=== PATIENT | male | born 1975 | race American Indian/Alaskan Native ===

== ENCOUNTER 2021-08-26 14:14 | Inpatient (IN) | payer SELFPAY ==
[2021-08-26] MEDS ORDERED: ONDANSETRON 4 MG/2 ML INJ IV ONE (14:25)
[2021-08-26] MEDS ORDERED: ONDANSETRON 4 MG/2 ML INJ ONE (14:29)
--- NOTE | 2021-08-26 14:29 | Emergency Department Report ---
HPI - General Time Seen by Provider: 08/26/21 14:18 - HPI HPI: Charge nurse triage The patient is a 46-year-old male present with chief complaint of right-sided weakness. Patient states at 21: 00 last night he noticed weakness in his right arm and right leg. EMS was called this morning states the patient is unable to stand secondary to the right leg weakness. When the patient was first encountered he was alert and oriented however during transport some of his answers to questions were inappropriate per EMS. Upon arrival to the ED EMS states the patient became more appropriate. ED Past Medical Hx - Past Medical History Hx Hypertension: Yes (No meds) - Surgical History Past Surgical History?: No - Family History Family history: no significant - Social History Smoking Status: Never Smoker ED Review of Systems ROS: Stated complaint: CODE STROKE Other details as noted in HPI Constitutional: no symptoms reported Eyes: denies: eye pain ENT: denies: throat pain Respiratory: no symptoms reported Cardiovascular: denies: chest pain Endocrine: no symptoms reported Gastrointestinal: denies: abdominal pain Musculoskeletal: denies: back pain Neurological: weakness Physical Exam - Physical Exam Physical Exam: GENERAL: The patient is well-developed well-nourished male lying on stretcher not appearing to be in acute distress. [] HEENT: Normocephalic. Atraumatic. Extraocular motions are intact. Patient has moist mucous membranes. NECK: Supple. Trachea midline CHEST/LUNGS: Clear to auscultation. There is no respiratory distress noted. HEART/CARDIOVASCULAR: Regular. There is no tachycardia. There is no gallop rub or murmur. ABDOMEN: Abdomen is soft, nontender. Patient has normal bowel sounds. There is no abdominal distention. SKIN: There is no rash. There is no edema. There is no diaphoresis. NEURO: The patient is awake, alert, and oriented. The patient is cooperative. Cranial nerves II through XII grossly intact. Patient is able to hold left upper extremity at 45 degree angle for 10-second count without drift. Patient is able to hold right upper extremity at 45 degree angle for 10-second count with minimal drift. The patient has normal speech. Patient able to hold left lower extremity at 30 degree angle for 5-second count without drift. Patient is able to hold right lower extremity at 30 degree angle for 5-second count however there is frequent drift and correction. GCS 15 MUSCULOSKELETAL: There is no evidence of acute injury. ED Medical Decision Making - Lab Data Result diagrams: 08/26/21 14:56 08/26/21 14:56 Laboratory Tests 08/26/21 08/26/21 08/26/21 14:56 14:56 14:56 WBC 6.0 RBC 4.69 Hgb 15.5 H Hct 46.0 H MCV 98 H MCH 33 H MCHC 34 RDW 15.0 Plt Count 174 Lymph % (Auto) 25.8 [place] % (Auto) 9.6 H Eos % (Auto) 0.1 Baso % (Auto) 0.3 Lymph # (Auto) 1.6 [place] # (Auto) 0.6 Eos # (Auto) 0.0 Baso # (Auto) 0.0 Seg Neutrophils % 64.2 Seg Neutrophils # 3.9 PT 13.2 INR 0.91 APTT 30.1 Thrombin Time 17.8 Sodium 138 Potassium 4.2 Chloride 104.3 Carbon Dioxide 20 L Anion Gap 18 BUN 12 Creatinine 1.0 Estimated GFR > 60 BUN/Creatinine Ratio 12 Glucose 114 H Calcium 9.2 - EKG Data -: EKG Interpreted by Ks EKG shows normal: sinus rhythm Rate: normal - EKG Data When compared to previous EKG there are: previous EKG unavailable Interpretation: nonspecific ST-T wave devendra (T wave inversions in leads I, 2, aVL, aVF, V4, V5, V6) - Radiology Data Radiology results: report reviewed (CT head, CTA neck, CTA brain), image reviewed (CT head, CTA neck, CT brain) [facility] [address] [place] [address] Cat Scan Report Signed Patient: KENDRA REGAN MR#: [id number] : 1975 Acct:[id number] Age/Sex: 46 / M ADM Date: 08/26/21 Loc: ED Attending Dr: Ordering Physician: ANTOINETTE MYERS MD Date of Service: 08/26/21 Procedure(s): CT head/brain wo con Accession Number(s): [id number] cc: ANTOINETTE MYERS MD CT HEAD WITHOUT CONTRAST INDICATION / CLINICAL INFORMATION: CODE STROKE CALL ER MAIN AT 8199 Right-sided weakness. TECHNIQUE: All CT scans at this location are performed using CT dose reduction for ALARA by means of automated exposure control. COMPARISON: None available. LIMITATIONS: Patient motion artifact degrades image quality and is a limiting factor on this examination. FINDINGS: HEMORRHAGE: No evidence of intracranial hemorrhage or extra-axial fluid collection. EXTRA-AXIAL SPACES: Cortical sulci, sylvian fissures and basilar cisterns have an unremarkable appearance. VENTRICULAR SYSTEM: The third and lateral ventricles are of normal size and configuration. CEREBRAL PARENCHYMA: No areas of abnormal brain parenchymal attenuation are identified. There is no indication of recent infarction. MIDLINE SHIFT OR HERNIATION: There is no mass effect. CEREBELLUM / BRAINSTEM: Brainstem and cerebellum have an unremarkable appearance. MIDLINE STRUCTURES:No abnormalities of the pituitary gland or pineal region are identified. INTRACRANIAL VESSELS:No abnormalities are identified on this noncontrast head CT. ORBITS: visualized portions of the orbits have an unremarkable appearance. SOFT TISSUES of HEAD: No significant abnormality. CALVARIUM: Evaluation of bone windows reveals no abnormalities. PARANASAL SINUSES / MASTOID AIR CELLS: Visualized portions of the paranasal sinuses are free from inflammatory mucosal disease. Mastoid air cells are normally pneumatized. ADDITIONAL FINDINGS: None. IMPRESSION: 1. No acute intracranial abnormality. CTA head and neck are pending. CODE STROKE: Time of Communication (TOOL LIAISON/CDT): 1350 central standard time Licensed Practitioner Receiving Report: Dr. Barajas, emergency department [facility]. Signer Name: Faisal Champion MD Signed: 08/26/2021 2:52 PM Workstation Name: [id number] Transcribed By: Dictated By: Faisal Champion MD Electronically Authenticated By: Faisal Champion MD Signed Date/Time: 08/26/21 145 DD/ TD/TT: [facility] [address] [place] [address] Cat Scan Report Signed Patient: KENDRA REGAN MR#: [id number] : 1975 Acct:[id number] Age/Sex: 46 / M ADM Date: 08/26/21 Loc: ED Attending Dr: Ordering Physician: ANTOINETTE MYERS MD Date of Service: 08/26/21 Procedure(s): CT angio head Accession Number(s): [id number] cc: ANTOINETTE MYERS MD CTA HEAD WITH CONTRAST 08/26/2021 HISTORY: Right-sided weakness OMNI 350 100 ML. COMPARISON: None. TECHNIQUE: All CT scans at this location are performed using CT dose reduction for ALARA by means of automated exposure control.. 3-D/MIP reformats postprocessed. Percentage stenosis is determined by direct quantitative measurements of diseased internal carotid artery diameter compared with normal distal internal carotid artery reference segments or by criteria similar to NASCET where applicable. CONTRAST: 100 ml of Omnipaque 350 FINDINGS: CTA HEAD: Intracranial vertebral arteries: No significant abnormality. Basilar artery: No significant abnormality. Posterior cerebral arteries: No significant abnormality. Intracranial internal carotid arteries: No significant abnormality. Anterior cerebral arteries: No significant abnormality. Middle cerebral arteries: No significant abnormality. Dural venous sinuses:Not optimally opacified. No significant abnormality. Additional findings: None. IMPRESSION: 1. No significant abnormality. Signer Name: Raul Erazo MD Signed: 08/26/2021 3:05 PM Workstation Name: [id number] Transcribed By: AO Dictated By: Raul Erazo MD Electronically Authenticated By: Raul Erazo MD Signed Date/Time: 08/26/21 1505 DD/ 1503 TD/TT: [facility] [address] [place] [address] Cat Scan Report Signed Patient: KENDRA REGAN MR#: [id number] : 1975 Acct:[id number] Age/Sex: 46 / M ADM Date: 08/26/21 Loc: ED Attending Dr: Ordering Physician: ANTOINETTE MYERS MD Date of Service: 08/26/21 Procedure(s): CT angio neck Accession Number(s): [id number] cc: ANTOINETTE MYERS MD CTA NECK WITH CONTRAST 08/26/2021 INDICATION / CLINICAL INFORMATION: Right-sided weakness OMNI 350 100 ML. COMPARISON: None. TECHNIQUE: Routine CTA of the neck is performed. 3-D/MIP reformats were postprocessed. Percentage stenosis is determined by direct quantitative measurements of diseased internal carotid artery diameter compared with normal distal internal carotid artery reference segments or by criteria similar to NASCET where applicable. All CT scans at this location are performed using CT dose reduction for ALARA by means of automated exposure control. CONTRAST: 100 ml of a 350 FINDINGS: Carotid bifurcations: There is no evidence of carotid bifurcation stenosis Carotid arteries: No significant abnormality. Cervical vertebral arteries: The relatively hypoplastic left vertebral artery has a direct origin from the aortic arch, a normal variant. Aortic arch: No significant abnormality. None. IMPRESSION: No significant abnormality. Signer Name: Raul Erazo MD Signed: 08/26/2021 3:03 PM Workstation Name: [id number] Transcribed By: AO Dictated By: Raul Erazo MD Electro nically Authenticated By: Raul Erazo MD Signed Date/Time: 08/26/21 1503 DD/ 1500 TD/TT: - Differential Diagnosis CVA Critical care attestation.: If time is entered above; I have spent that time in minutes in the direct care of this critically ill patient, excluding procedure time. ED Disposition Clinical Impression: CVA (cerebral vascular accident) Disposition: ADMITTED INPATIENT Is pt being admited?: Yes Does the pt Need Aspirin: Yes Condition: Fair Time of Disposition: 17:00 (Hospitalist notified (Dr. Camarena))
--- NOTE | 2021-08-26 14:57 | Cat Scan Report ---
CT HEAD WITHOUT CONTRAST INDICATION / CLINICAL INFORMATION: CODE STROKE CALL ER MAIN AT 8199 Right-sided weakness. TECHNIQUE: All CT scans at this location are performed using CT dose reduction for ALARA by means of automated e xposure control. COMPARISON: None available. LIMITATIONS: Patient motion artifact degrades image quality and is a limiting factor on this examinat ion. FINDINGS: HEMORRHAGE: No evidence of intracranial hemorrhage or extra-axial fluid collection. EXTRA-AXIAL SPACES: Cortical sulci, sylvian fissures and basilar cisterns have an unremarkable appear ance. VENTRICULAR SYSTEM: The third and lateral ventricles are of normal size and configuration. CEREBRAL PARENCHYMA: No areas of abnormal brain parenchymal attenuation are identified. There is no i ndication of recent infarction. MIDLINE SHIFT OR HERNIATION: There is no mass effect. CEREBELLUM / BRAINSTEM: Brainstem and cerebellum have an unremarkable appearance. MIDLINE STRUCTURES:No abnormalities of the pituitary gland or pineal region are identified. INTRACRANIAL VESSELS:No abnormalities are identified on this noncontrast head CT. ORBITS: visualized portions of the orbits have an unremarkable appearance. SOFT TISSUES of HEAD: No significant abnormality. CALVARIUM: Evaluation of bone windows reveals no abnormalities. PARANASAL SINUSES / MASTOID AIR CELLS: Visualized portions of the paranasal sinuses are free from inf lammatory mucosal disease. Mastoid air cells are normally pneumatized. ADDITIONAL FINDINGS: None. IMPRESSION: 1. No acute intracranial abnormality. CTA head and neck are pending. CODE STROKE: Time of Communication (LITERACY COORDINATOR/CDT): 1350 central standard time Licensed Practitioner Receiving Report: Dr. Barajas, emergency department [facility]. Signer Name: Faisal Champion MD Signed: 08/26/2021 2:52 PM Workstation Name: [id number]
--- NOTE | 2021-08-26 15:07 | Cat Scan Report ---
CTA NECK WITH CONTRAST 08/26/2021 INDICATION / CLINICAL INFORMATION: Right-sided weakness OMNI 350 100 ML. COMPARISON: None. TECHNIQUE: Routine CTA of the neck is performed. 3-D/MIP reformats were postprocessed. Percentage st enosis is determined by direct quantitative measurements of diseased internal carotid artery diameter compared with normal distal internal carotid artery reference segments or by criteria similar to DAMARIS CET where applicable. All CT scans at this location are performed using CT dose reduction for ALARA b y means of automated exposure control. CONTRAST: 100 ml of a 350 FINDINGS: Carotid bifurcations: There is no evidence of carotid bifurcation stenosis Carotid arteries: No significant abnormality. Cervical vertebral arteries: The relatively hypoplastic left vertebral artery has a direct origin fro m the aortic arch, a normal variant. Aortic arch: No significant abnormality. None. IMPRESSION: No significant abnormality. Signer Name: Raul Erazo MD Signed: 08/26/2021 3:03 PM Workstation Name: [id number]
--- NOTE | 2021-08-26 15:09 | Cat Scan Report ---
CTA HEAD WITH CONTRAST 08/26/2021 HISTORY: Right-sided weakness OMNI 350 100 ML. COMPARISON: None. TECHNIQUE: All CT scans at this location are performed using CT dose reduction for ALARA by means of automated exposure control.. 3-D/MIP reformats postprocessed. Percentage stenosis is determined by d irect quantitative measurements of diseased internal carotid artery diameter compared with normal [place] internal carotid artery reference segments or by criteria similar to NASCET where applicable. CONTRAST: 100 ml of Omnipaque 350 FINDINGS: CTA HEAD: Intracranial vertebral arteries: No significant abnormality. Basilar artery: No significant abnormality. Posterior cerebral arteries: No significant abnormality. Intracranial internal carotid arteries: No significant abnormality. Anterior cerebral arteries: No significant abnormality. Middle cerebral arteries: No significant abnormality. Dural venous sinuses:Not optimally opacified. No significant abnormality. Additional findings: None. IMPRESSION: 1. No significant abnormality. Signer Name: Raul Erazo MD Signed: 08/26/2021 3:05 PM Workstation Name: [id number]
[2021-08-26 15:13] LABS: Basophils % (Auto) 0.3 % (0.0-1.8); Eosinophils % (Auto) 0.1 % (0.0-4.3); Hemoglobin 15.5 gm/dl (11.8-15.2); Lymphocytes # (Auto) 1.6 K/mm3 (1.2-5.4); Lymphocytes % (Auto) 25.8 % (13.4-35.0); Mean Corpuscular HGB Conc 34 % (32-34); Mean Corpuscular Volume 98 fl (84-94); Monocytes # (Auto) 0.6 K/mm3 (0.0-0.8); Monocytes % (Auto) 9.6 % (0.0-7.3); Platelet Count 174 K/mm3 (140-440); Red Blood Count 4.69 M/mm3 (3.65-5.03)
[2021-08-26 15:25] LABS: INR 0.91 (0.87-1.13); Partial Thromboplastin Time 30.1 Sec. (24.2-36.6); Thrombin Time 17.8 Sec. (15.1-19.6)
--- NOTE | 2021-08-26 15:28 | Emergency Department Report ---
Blank Doc - Documentation Documentation: [facility] Consult Note # Demographics Consult Type: Acute Stroke Level 1 (0-4.5 hrs) Patient Location: Emergency Room First Name: Rick Last Name: Adalberto Date of : 1975 Age: 46 Gender: Male Facility: [facility] Time of Initial Page (): 08/26/2021, 14:18 Time of Return Call ( Time): 08/26/2021, 14:18 # HPI History: 46 year old male presented to ED due to not feeling well starting last night. Patient confused on presentation but as per EMS he is improving. Nurse at bedside provided story that patient had headache last night and had right sided weakness. HE woke up with similar presenatation this morning and wasnt himself. EMS was called who found him to be confused, not answering questions. He seems to be improving now. Patient provided limited hx but states he does not take any medications as he does not have any insurance. Last Known Normal: I have collected independent history specific to time last normal or last known well. We have collaborated with the provider and at this time, we have the most current timeline with the information that is available. last night 9 pm Duration: improving days # Scores Time of exam and NIHSS (): 08/26/2021, 14:19 Level of Consciousness 1a: [0] = Alert; keenly responsive LOC Questions 1b: [1] = Answers one correctly LOC Commands 1c: [1] = Performs one correctly Best Gaze 2: [0] = Normal Visual 3: [0] = No visual loss Facial Palsy 4: [0] = Normal symmetrical movements Motor Arm Left 5a: [0] = No drift Motor Arm Right 5b: [1] = Drift Motor Leg Left 6a: [2] = Some effort against gravity Motor Leg Right 6b: [0] = No drift Limb Ataxia 7: [0] = Absent Sensory 8: [1] = [id number] sensory loss Best Language 9: [0] = No aphasia Dysarthria 10: [0] = Normal Extinction and Inattention 11: [0] = No abnormality NIHSS Total: 6 # PMH-FH-SH Past Medical History: hypertension Past Surgical History: denies Social History: lives with spouse Medications: denies # Data Time Head CT personally read by me ( Time): 08/26/2021, 14:[address]: no bleed per radiologist read CTA Head: no large vessel occlusion per radiologist read CTA Neck: patent vessels per radiologist read # Assessment Impression: 46 year old male with hx of HTN, not on any medications presents with right sided weakness and AMS starting last night. NIHSS: 6. CTH: without any abnormalities, CTA without LVO. Recommend MRI brain with and without contrast to start. Differential is broad: toxic/metabolic vs. hypertensive encephalopathy (though he has focality) vs. focal lesion in brain vs. infectious process # Plan Thrombolytic/Intervention: NOT IV Thrombolysis or IA Intervention candidate Thrombolytic Exclusion: > 4.5 hours Intraarterial Exclusion: no large vessel occlusion (LVO) Blood Pressure Management: nicardipine IV fluid bolus Target Blood Pressure: SBP < 180 SBP > 110 DBP < 105 Labs: Ammonia B12 CBC comprehensive metabolic panel ESR hemoglobin A1c liver function tests lipid panel troponin TSH urine drug screen ua Imaging: (urgency: routine): MRI Brain with AND without contrast Diagnostic Test: echo with bubble study Therapy/Evaluation: PT/OT evaluation speech/swallow consultation Medication: aspirin 81 mg daily start statin with goal of LDL < 70 DVT Prophylaxis: chemical DVT prophylaxis Other: If patient has any neurological deterioration please call me back immediately telemetry monitoring would not pursue stroke work-up if MRI is negative I have discussed my recommendations with the referring provider Disposition: admit
[2021-08-26 15:49] LABS: BUN/Creatinine Ratio 12; Blood Urea Nitrogen 12 mg/dL (9-20); Calcium 9.2 mg/dL (8.4-10.2); Hemolysis Index 14
[2021-08-26] MEDS ORDERED: ASPIRIN 325 MG TAB PO ONE (17:31)
[2021-08-26] MEDS ORDERED: hydrALAZINE 20 MG/1 ML INJ IV ONE (18:28)
[2021-08-26] MEDS: hydroCHLOROthiazide 25 MG TAB PO ONE (20:00)
[2021-08-26] MEDS: amLODIPine 5 MG TAB PO ONE (20:00)
[2021-08-26 23:06] LABS: Amphetamine Screen,Urine PRESUMPTIVE NEGATIVE; Benzodiazepines Screen,Urine PRESUMPTIVE NEGATIVE; Cannabinoid Screen,Urine PRESUMPTIVE POSITIVE; Cocaine Screen,Urine PRESUMPTIVE NEGATIVE; Methadone Screen,Urine PRESUMPTIVE NEGATIVE; Opiate Screen,Urine PRESUMPTIVE NEGATIVE
[2021-08-27] MEDS: hydrALAZINE 20 MG/1 ML INJ IV ONE ×2 (01:16→10:51)
[2021-08-27] MEDS ORDERED: ACETAMINOPHEN 325 MG TAB PO PRN (05:07)
[2021-08-27] MEDS ORDERED: MORPHINE 2 MG/1 ML INJ IV PRN (05:07)
[2021-08-27] MEDS ORDERED: ONDANSETRON 4 MG/2 ML INJ IV PRN (05:07)
[2021-08-27] MEDS ORDERED: HYDROmorphone 1 MG/1 ML INJ IV PRN (05:07)
[2021-08-27] MEDS ORDERED: ALBUTEROL 2.5 MG/3 ML NEBU IH PRN (05:07)
--- NOTE | 2021-08-27 05:17 | History and Physical Report ---
History of Present Illness Date of examination: 08/27/21 Date of admission: 08/27/21 Chief complaint: Right-sided weakness History of present illness: 46-year-old male with history of hypertension was brought to the hospital because of right-sided weakness. Patient states at 21: 00 last night he noticed weakness in his right arm and right leg. EMS was called this morning states the patient is unable to stand secondary to the right leg weakness. When the patien t was first encountered he was alert and oriented however during transport some of his answers to questions were inappropriate per EMS. Upon arrival to the ED EMS states the patient became more appropriate. Initial CT scan of the head shows no acute intracranial abnormality. Subsequently patient was seen and evaluated by telemetry neurology.'s were going to admit the patient we will put the patient on stroke pathway. Will consult neurology for evaluation we also order MRI of the brain Past History Past Medical History: hypertension Past Surgical History: No surgical history Social history: other (No smoking) Family history: no significant family history Medications and Allergies Allergies Allergy/AdvReac Type Severity Reaction Status Date / Time No Known Allergies Allergy Unverified 08/26/21 17:16 Active Meds: Active Medications Acetaminophen (Acetaminophen 325 Mg Tab) 650 mg PO Q4H PRN PRN Reason: Pain MILD(1-3)/Fever >100.5/ESTES Albuterol (Albuterol 2.5 Mg/3 Ml Nebu) 2.5 mg IH Q3HRT PRN PRN Reason: Shortness Of Breath Albuterol/Ipratropium (Ipratropium/Albuterol Sulfate 3 Ml Ampul.Neb) 1 ampul IH Q6HRT TRACEY Aspirin (Aspirin 325 Mg Tab) 325 mg PO QDAY TRACEY Atorvastatin Calcium (Atorvastatin 40 Mg Tab) 40 mg PO QHS TRACEY Famotidine (Famotidine 20 Mg Tab) 20 mg PO BID TRACEY Hydralazine HCl (Hydralazine 20 Mg/1 Ml Inj) 10 mg IV Q6H PRN PRN Reason: Blood Pressure Hydromorphone HCl (Hydromorphone 1 Mg/1 Ml Inj) 0.5 mg IV Q3H PRN PRN Reason: Pain , Severe (7-10) Dextrose/Sodium Chloride (D5/0.45ns) 1,000 mls @ 100 mls/hr IV DIRECT TRACEY Labetalol HCl (Labetalol 20 Mg/4 Ml Inj) 10 mg IV Q5MIN PRN PRN Reason: to maintain SBP < 180 Morphine Sulfate (Morphine 2 Mg/1 Ml Inj) 2 mg IV Q4H PRN PRN Reason: Pain, Moderate (4-6) Ondansetron HCl (Ondansetron 4 Mg/2 Ml Inj) 4 mg IV Q8H PRN PRN Reason: Nausea And Vomiting Sodium Chloride (Sodium Chloride 0.9% 10 Ml Flush Syringe) 10 ml IV BID TRACEY Sodium Chloride (Sodium Chloride 0.9% 10 Ml Flush Syringe) 10 ml IV PRN PRN PRN Reason: LINE FLUSH Sodium Chloride (Sodium Chloride 0.9% 10 Ml Flush Syringe) 10 ml INJ PRN PRN PRN Reason: LINE FLUSH Review of Systems All systems: negative Constitutional: weakness Neurological: weakness, gait dysfunction Exam - Constitutional Vitals: Temp Pulse Resp BP Pulse Ox 82 20 201/108 100 08/27/21 01:56 08/27/21 01:56 08/27/21 01:56 08/27/21 01:56 General appearance: Present: no acute distress, well-nourished - EENT Eyes: Present: PERRL ENT: hearing intact, clear oral mucosa - Neck Neck: Present: supple, normal ROM - Respiratory Respiratory effort: normal Respiratory: bilateral: CTA - Cardiovascular Heart Sounds: Present: S1 & S2. Absent: rub, click - Extremities Extremities: pulses symmetrical, No edema Peripheral Pulses: within normal limits - Abdominal General gastrointestinal: Present: soft, non-tender, non-distended, normal bowel sounds Male genitourinary: Present: normal - Integumentary Integumentary: Present: clear, warm, dry - Musculoskeletal Musculoskeletal: gait normal, strength equal bilaterally - Psychiatric Psychiatric: appropriate mood/affect, intact judgment & insight - Neurologic Neurologic: CNII-XII intact, moves all extremities, other (The patient is awake, alert, and oriented. The patient is cooperative. Cranial nerves II through XII grossly intact. Patient is able to hold left upper extremity at 45 degree angle for 10-second count without drift. Patient is able to hold right upper extremity at 45 degree angle for 10-second c) Results - Labs CBC & Chem 7: 08/26/21 14:56 08/26/21 14:56 Labs: Laboratory Last Values WBC 6.0 K/mm3 (4.5-11.0) 08/26/21 14:56 RBC 4.69 M/mm3 (3.65-5.03) 08/26/21 14:56 Hgb 15.5 gm/dl (11.8-15.2) H 08/26/21 14:56 Hct 46.0 % (35.5-45.6) H 08/26/21 14:56 MCV 98 fl (84-94) H 08/26/21 14:56 MCH 33 pg (28-32) H 08/26/21 14:56 MCHC 34 % (32-34) 08/26/21 14:56 RDW 15.0 % (13.2-15.2) 08/26/21 14:56 Plt Count 174 K/mm3 (140-440) 08/26/21 14:56 Lymph % (Auto) 25.8 % (13.4-35.0) 08/26/21 14:56 [place] % (Auto) 9.6 % (0.0-7.3) H 08/26/21 14:56 Eos % (Auto) 0.1 % (0.0-4.3) 08/26/21 14:56 Baso % (Auto) 0.3 % (0.0-1.8) 08/26/21 14:56 Lymph # (Auto) 1.6 K/mm3 (1.2-5.4) 08/26/21 14:56 [place] # (Auto) 0.6 K/mm3 (0.0-0.8) 08/26/21 14:56 Eos # (Auto) 0.0 K/mm3 (0.0-0.4) 08/26/21 14:56 Baso # (Auto) 0.0 K/mm3 (0.0-0.1) 08/26/21 14:56 Seg Neutrophils % 64.2 % (40.0-70.0) 08/26/21 14:56 Seg Neutrophils # 3.9 K/mm3 (1.8-7.7) 08/26/21 14:56 PT 13.2 Sec. (12.2-14.9) 08/26/21 14:56 INR 0.91 (0.87-1.13) 08/26/21 14:56 APTT 30.1 Sec. (24.2-36.6) 08/26/21 14:56 Thrombin Time 17.8 Sec. (15.1-19.6) 08/26/21 14:56 Sodium 138 mmol/L (137-145) 08/26/21 14:56 Potassium 4.2 mmol/L (3.6-5.0) 08/26/21 14:56 Chloride 104.3 mmol/L (98-107) 08/26/21 14:56 Carbon Dioxide 20 mmol/L (22-30) L 08/26/21 14:56 Anion Gap 18 mmol/L 08/26/21 14:56 BUN 12 mg/dL (9-20) 08/26/21 14:56 Creatinine 1.0 mg/dL (0.8-1.3) 08/26/21 14:56 Estimated GFR > 60 ml/min 08/26/21 14:56 BUN/Creatinine Ratio 12 % 08/26/21 14:56 Glucose 114 mg/dL (75-100) H 08/26/21 14:56 Calcium 9.2 mg/dL (8.4-10.2) 08/26/21 14:56 Urine Opiates Screen Presumptive negative 08/26/21 Unknown Urine Methadone Screen Presumptive negative 08/26/21 Unknown Ur Barbiturates Screen Presumptive negative 08/26/21 Unknown Ur Phencyclidine Scrn Presumptive negative 08/26/21 Unknown Ur Amphetamines Screen Presumptive negative 08/26/21 Unknown U Benzodiazepines Scrn Presumptive negative 08/26/21 Unknown Urine Cocaine Screen Presumptive negative 08/26/21 Unknown U Marijuana (THC) Screen Presumptive positive 08/26/21 Unknown Drugs of Abuse Note Disclamer 08/26/21 Unknown - Imaging and Cardiology CT Scan - head: report reviewed Assessment and Plan VTE prophylaxis?: Mechanical Plan of care discussed with patient/family: Yes - Patient Problems (1) CVA (cerebral vascular accident) Current Visit: Yes Status: Acute Plan to address problem: Admit the patient to the medical floor. Aspirin 325 mg p.o. daily. Lipitor 40 mg p.o. daily. PT OT speech evaluation. MRI of the brain and MRA of the brain and neck with and without contrast. Neurology evaluation. Echocardiogram (2) Hypertension Current Visit: Yes Status: Acute Plan to address problem: Labetalol 10 mg IV every 6 hours as needed. Hydralazine 10 mg IV every 6 hours as needed. We continue the home medication (3) DVT prophylaxis Current Visit: Yes Status: Acute Plan to address problem: SCD for DVT prophylaxis. Pepcid 20 mg p.o. twice daily for GI prophylaxis. Patient is a full code
[2021-08-27] MEDS ORDERED: D5W/0.45% NACL 1,000 ML IV SCH (06:00)
[2021-08-27] MEDS ORDERED: IPRATROPIUM/ALBUTEROL SULFATE 3 ML AMPUL.NEB IH SCH (08:00)
[2021-08-27] MEDS: ASPIRIN 325 MG TAB PO SCH (08:59)
[2021-08-27] MEDS: FAMOTIDINE 20 MG TAB PO SCH ×2 (08:59→23:16)
[2021-08-27] MEDS: amLODIPine 5 MG TAB PO ONE (10:50)
[2021-08-27] MEDS: hydroCHLOROthiazide 25 MG TAB PO ONE (10:50)
--- NOTE | 2021-08-27 11:27 | Progress Note ---
Assessment and Plan Assessment and plan: 46-year-old male with history of hypertension was brought to the hospital because of right-sided weakness. Patient states at 21: 00 on the night [employer], he noticed weakness in his right arm and right leg. EMS was called the morning [employer] and the patient reportedly was unable to stand secondary to the right leg weakness. When the patient was first encountered, he was alert and oriented however during transport some of his answers to questions were inappropriate per EMS. Upon arrival to the ED EMS states the patient became more appropriate. Initial CT scan of the head shows no acute intracranial abnormality. Subsequently patient was seen and evaluated by telemetry neurology. The patient was deemed out of the window for TPA. The patient was admitted with diagnosis below Acute CVA Accelerated hypertension Medical noncompliance Marijuana use daily 08/27/2021. Patient appears to exhibit expressive aphasia. Patient reportedly has been noncompliant with his BP medications. Neurology consultation is pending. Continue to stroke pathway and secondary prevention with aspirin and Lipitor. Permissive hypertension to maintain systolic blood pressure 160 [id number] mmHg. PT/OT/ST. Follow-up echocardiogram, MRI. CT head, CTA head and neck were found to be negative. History Interval history: No new issues overnight. Hospitalist Physical - Constitutional Vitals: Temp Pulse Resp BP Pulse Ox 98.7 F 87 18 168/102 97 08/27/21 08:29 08/27/21 10:00 08/27/21 10:00 08/27/21 08:29 08/27/21 10:00 General appearance: Present: no acute distress, well-nourished - EENT Eyes: Present: PERRL, EOM intact ENT: hearing intact, clear oral mucosa, dentition normal - Neck Neck: Present: supple, normal ROM - Respiratory Respiratory effort: normal Respiratory: bilateral: CTA - Cardiovascular Rhythm: regular Heart Sounds: Present: S1 & S2. Absent: gallop, rub - Extremities Extremities: no ischemia, No edema, Full ROM - Abdominal General gastrointestinal: soft, non-tender, non-distended, normal bowel sounds - Integumentary Integumentary: Present: clear, warm, dry - Neurologic Neurologic: CNII-XII intact, moves all extremities Results - Labs CBC & Chem 7: 08/26/21 14:56 08/26/21 14:56 Labs: Laboratory Last Values WBC 6.0 K/mm3 (4.5-11.0) 08/26/21 14:56 RBC 4.69 M/mm3 (3.65-5.03) 08/26/21 14:56 Hgb 15.5 gm/dl (11.8-15.2) H 08/26/21 14:56 Hct 46.0 % (35.5-45.6) H 08/26/21 14:56 MCV 98 fl (84-94) H 08/26/21 14:56 MCH 33 pg (28-32) H 08/26/21 14:56 MCHC 34 % (32-34) 08/26/21 14:56 RDW 15.0 % (13.2-15.2) 08/26/21 14:56 Plt Count 174 K/mm3 (140-440) 08/26/21 14:56 Lymph % (Auto) 25.8 % (13.4-35.0) 08/26/21 14:56 [place] % (Auto) 9.6 % (0.0-7.3) H 08/26/21 14:56 Eos % (Auto) 0.1 % (0.0-4.3) 08/26/21 14:56 Baso % (Auto) 0.3 % (0.0-1.8) 08/26/21 14:56 Lymph # (Auto) 1.6 K/mm3 (1.2-5.4) 08/26/21 14:56 [place] # (Auto) 0.6 K/mm3 (0.0-0.8) 08/26/21 14:56 Eos # (Auto) 0.0 K/mm3 (0.0-0.4) 08/26/21 14:56 Baso # (Auto) 0.0 K/mm3 (0.0-0.1) 08/26/21 14:56 Seg Neutrophils % 64.2 % (40.0-70.0) 08/26/21 14:56 Seg Neutrophils # 3.9 K/mm3 (1.8-7.7) 08/26/21 14:56 PT 13.2 Sec. (12.2-14.9) 08/26/21 14:56 INR 0.91 (0.87-1.13) 08/26/21 14:56 APTT 30.1 Sec. (24.2-36.6) 08/26/21 14:56 Thrombin Time 17.8 Sec. (15.1-19.6) 08/26/21 14:56 Sodium 138 mmol/L (137-145) 08/26/21 14:56 Potassium 4.2 mmol/L (3.6-5.0) 08/26/21 14:56 Chloride 104.3 mmol/L (98-107) 08/26/21 14:56 Carbon Dioxide 20 mmol/L (22-30) L 08/26/21 14:56 Anion Gap 18 mmol/L 08/26/21 14:56 BUN 12 mg/dL (9-20) 08/26/21 14:56 Creatinine 1.0 mg/dL (0.8-1.3) 08/26/21 14:56 Estimated GFR > 60 ml/min 08/26/21 14:56 BUN/Creatinine Ratio 12 % 08/26/21 14:56 Glucose 114 mg/dL (75-100) H 08/26/21 14:56 Calcium 9.2 mg/dL (8.4-10.2) 08/26/21 14:56 Urine Opiates Screen Presumptive negative 08/26/21 Unknown Urine Methadone Screen Presumptive negative 08/26/21 Unknown Ur Barbiturates Screen Presumptive negative 08/26/21 Unknown Ur Phencyclidine Scrn Presumptive negative 08/26/21 Unknown Ur Amphetamines Screen Presumptive negative 08/26/21 Unknown U Benzodiazepines Scrn Presumptive negative 08/26/21 Unknown Urine Cocaine Screen Presumptive negative 08/26/21 Unknown U Marijuana (THC) Screen Presumptive positive 08/26/21 Unknown Drugs of Abuse Note Disclamer 08/26/21 Unknown Camacho/IV: Voiding Method Condom Catheter Active Medications - Current Medications Current Medications: Generic Name Dose Route Start Last Admin Trade Name Freq PRN Reason Stop Dose Admin Acetaminophen 650 mg 08/27/21 05:07 Acetaminophen 325 Mg Tab PO Q4H PRN Pain MILD(1-3)/Fever >100.5/ESTES Albuterol 2.5 mg 08/27/21 05:07 Albuterol 2.5 Mg/3 Ml Nebu IH Q3HRT PRN Shortness Of Breath Aspirin 325 mg 08/27/21 10:00 08/27/21 08:59 Aspirin 325 Mg Tab PO 325 mg QDAY TRACEY Administration Atorvastatin Calcium 40 mg 04/01/22 22:00 Atorvastatin 40 Mg Tab PO QHS TRACEY Famotidine 20 mg 08/27/21 10:00 08/27/21 08:59 Famotidine 20 Mg Tab PO 20 mg BID TRACEY Administration Hydralazine HCl 10 mg 08/27/21 05:07 Hydralazine 20 Mg/1 Ml Inj IV Q6H PRN Blood Pressure Hydromorphone HCl 0.5 mg 08/27/21 05:07 Hydromorphone 1 Mg/1 Ml Inj IV Q3H PRN Pain , Severe (7-10) Dextrose/Sodium Chloride 1,000 mls @ 100 mls/hr 08/27/21 06:00 08/27/21 08:48 D5/0.45ns IV 100 mls/hr DIRECT TRACEY Administration Labetalol HCl 10 mg 08/27/21 05:07 08/27/21 07:56 Labetalol 20 Mg/4 Ml Inj IV 10 mg Q5MIN PRN Administration to maintain SBP < 180 Morphine Sulfate 2 mg 08/27/21 05:07 Morphine 2 Mg/1 Ml Inj IV Q4H PRN Pain, Moderate (4-6) Ondansetron HCl 4 mg 08/27/21 05:07 Ondansetron 4 Mg/2 Ml Inj IV Q8H PRN Nausea And Vomiting Sodium Chloride 10 ml 08/27/21 10:00 08/27/21 08:59 Sodium Chloride 0.9% 10 Ml Flush Syringe IV 10 ml BID TRACEY Administration Sodium Chloride 10 ml 08/27/21 05:07 Sodium Chloride 0.9% 10 Ml Flush Syringe IV PRN PRN LINE FLUSH Sodium Chloride 10 ml 08/27/21 05:07 Sodium Chloride 0.9% 10 Ml Flush Syringe IV PRN PRN LINE FLUSH
--- NOTE | 2021-08-27 18:04 | Electrocardiograph Report ---
[facility] Test Date: 2021-08-26 Test Time: 17:46:36 Pat Name: KENDRA REGAN Department: Room: A476 1 Gender: M Associate Sales: ROXANNE : 1975 Requested By: ANTOINETTE MYERS Order Number: [id number] Reading MD: Shweta Avery Measurements Intervals [place] Rate: 88 P: 37 TX: 154 QRS: -9 QRSD: 86 T: 192 QT: 349 QTc: 422 Interpretive Statements Sinus rhythm Probable left atrial enlargement Probable LVH with secondary repol abnrm T wave abnormality cannot exclude lateral ischemia No previous ECG available for comparison Electronically Signed On 08-27-2021 18:04:22 EDT by Shweta Avery
--- NOTE | 2021-08-27 22:02 | Magnetic Resonance Report ---
MR brain wo con INDICATION / CLINICAL INFORMATION: 46 years Male; stroke. TECHNIQUE: Multiplanar, multisequence MR images of the brain were obtained. COMPARISON: CT head-08/26/2020 FINDINGS: BRAIN / INTRACRANIAL CONTENTS: Patchy area of ischemia is seen in the watershed region between the le ft ERICK and MCA territory, in the posterior frontal lobe. These findings are positive on the ADC map, suggesting acute/early subacute ischemia. There is minimal involvement of the paracentral lobule guru on on the left, as well as the cingulate gyral region anteriorly on the left, most likely supplying b y the ERICK territory. Otherwise, no acute hemorrhage, mass effect, midline shift, hydrocephalus, or acute, large territori al infarct. No chronic infarct or atrophy. There are mild areas of increased signal intensity on FLAIR imaging in the white matter of the cerebr al hemispheres. These are nonspecific findings and may be related to microangiopathy (hypertension, d iabetes, atherosclerosis), given the patient's age. CRANIOCERVICAL JUNCTION: No significant abnormality. VASCULAR FLOW-VOIDS: There is suggestion of increased T2 signal in the left anterior cerebral artery as it passes around the genu of the corpus callosum, suggesting slow or absent flow. ORBITS: No significant abnormality of visualized orbits. SINUSES / MASTOIDS: Mild to moderate mucosal thickening seen in the ethmoids. ADDITIONAL FINDINGS: Prominent soft tissue is seen in the roof the nasopharynx, presumably related to reactive adenoidal tissue. Please clinically correlate. IMPRESSION: 1. Acute/early subacute ischemic changes seen in small areas of the left ERICK and/or MCA territories, as described above. Signer Name: Yuri Knapp MD, III Signed: 08/27/2021 9:57 PM Workstation Name: [facility] [id number]
--- NOTE | 2021-08-27 22:12 | Magnetic Resonance Report ---
MR MRA/MRV head wo con INDICATION / CLINICAL INFORMATION: 46 years Male; stroke. TECHNIQUE: 3-D time of flight. NASCET type criteria used to evaluate stenoses. Some component of mot ion artifact is present. COMPARISON: None available. FINDINGS: INTERNAL CAROTID ARTERIES: No significant narrowing appreciated. VERTEBROBASILAR SYSTEM: No significant narrowing appreciated. DISTAL BRANCHES: Distal branches of the middle and posterior cerebral arteries are fairly symmetric i n appearance and number. Note, the distal MCA vessels on the right are slightly better visualized than left, which may be rela leopoldo to artifact. No definitive signs of large vessel occlusion appreciated. However, there is a small portion of the left anterior cerebral artery which is nearly completely occ luded where the vessel passes around the genu of the corpus callosum. This finding most likely explai ns ischemic pattern seen on today's MRI of the brain. Thrombus in this region might be a consideratio n. The A1 segment on the right is hypoplastic-normal variant. ANEURYSM: None identified. IMPRESSION: Near complete occlusion of a segment of the left anterior cerebral artery as described above. Signer Name: Yuri Knapp MD, III Signed: 08/27/2021 10:08 PM Workstation Name: [id number]
[2021-08-27] MEDS: hydrALAZINE 20 MG/1 ML INJ IV PRN (23:50)
[2021-08-28 05:30] LABS: Basophils % (Auto) 0.3 % (0.0-1.8); Eosinophils % (Auto) 0.2 % (0.0-4.3); Hematocrit 49.2 % (35.5-45.6); Hemoglobin 16.3 gm/dl (11.8-15.2); Lymphocytes # (Auto) 2.4 K/mm3 (1.2-5.4); Lymphocytes % (Auto) 33.2 % (13.4-35.0); Mean Corpuscular HGB Conc 33 % (32-34); Mean Corpuscular Volume 98 fl (84-94); Monocytes # (Auto) 0.9 K/mm3 (0.0-0.8); Monocytes % (Auto) 12.4 % (0.0-7.3); Platelet Count 178 K/mm3 (140-440); Red Blood Count 5.03 M/mm3 (3.65-5.03); Red Cell Distribution Width 15.4 % (13.2-15.2)
[2021-08-28 05:47] LABS: BUN/Creatinine Ratio 11; Blood Urea Nitrogen 12 mg/dL (9-20); Calcium 9.2 mg/dL (8.4-10.2); Hemolysis Index 14
[2021-08-28] MEDS: ASPIRIN 325 MG TAB PO SCH (09:05)
[2021-08-28] MEDS: hydrALAZINE 20 MG/1 ML INJ IV PRN ×3 (09:05→23:52)
[2021-08-28] MEDS: FAMOTIDINE 20 MG TAB PO SCH ×2 (09:06→21:09)
--- NOTE | 2021-08-28 11:55 | Progress Note ---
Assessment and Plan Assessment and plan: 46-year-old male with history of hypertension was brought to the hospital because of right-sided weakness. Patient states at 21: 00 on the night [employer], he noticed weakness in his right arm and right leg. EMS was called the morning [employer] and the patient reportedly was unable to stand secondary to the right leg weakness. When the patient was first encountered, he was alert and oriented however during transport some of his answers to questions were inappropriate per EMS. Upon arrival to the ED EMS states the patient became more appropriate. Initial CT scan of the head shows no acute intracranial abnormality. Subsequently patient was seen and evaluated by telemetry neurology. The patient was deemed out of the window for TPA. The patient was admitted with diagnosis below Acute CVA Accelerated hypertension Medical noncompliance Marijuana use daily 08/27/2021. Patient appears to exhibit expressive aphasia. Patient reportedly has been noncompliant with his BP medications. Neurology consultation is pending. Continue to stroke pathway and secondary prevention with aspirin and Lipitor. Permissive hypertension to maintain systolic blood pressure 160 [id number] mmHg. PT/OT/ST. Follow-up echocardiogram, MRI. CT head, CTA head and neck were found to be negative. 08/28/2021. MRI revealed acute/early subacute ischemic changes seen in small areas of left ERICK and or MCA territories. No definitive signs of large vessel occlusion however there is a small portion of the left anterior cerebral artery which is nearly completely occluded where the vessel passes around the genu of the corpus callosum. This findings most likely explain ischemic pattern. Moderate concentric left ventricular hypertrophy the left ventricular systolic function is normal with EF of 55-55%. I discussed the case with [facility] neuro intervention and they did not recommend any further evaluation. Physical jolly evaluated the patient and recommended acute rehab. Continue aspirin and Lipitor for secondary prevention History Interval history: No new issues overnight. Hospitalist Physical - Constitutional Vitals: Temp Pulse Resp BP Pulse Ox 98.7 F 71 18 184/133 99 08/28/21 08:31 08/28/21 11:27 08/28/21 11:27 08/28/21 08:31 08/28/21 11:27 General appearance: Present: no acute distress, well-nourished - EENT Eyes: Present: PERRL, EOM intact ENT: hearing intact, clear oral mucosa, dentition normal - Neck Neck: Present: supple, normal ROM - Respiratory Respiratory effort: normal Respiratory: bilateral: CTA - Cardiovascular Rhythm: regular Heart Sounds: Present: S1 & S2. Absent: gallop, rub - Extremities Extremities: no ischemia, No edema, Full ROM - Abdominal General gastrointestinal: soft, non-tender, non-distended, normal bowel sounds - Integumentary Integumentary: Present: clear, warm, dry - Neurologic Neurologic: CNII-XII intact, moves all extremities Results - Labs CBC & Chem 7: 08/28/21 05:17 08/28/21 05:17 Labs: Laboratory Last Values WBC 7.1 K/mm3 (4.5-11.0) 08/28/21 05:17 RBC 5.03 M/mm3 (3.65-5.03) 08/28/21 05:17 Hgb 16.3 gm/dl (11.8-15.2) H 08/28/21 05:17 Hct 49.2 % (35.5-45.6) H 08/28/21 05:17 MCV 98 fl (84-94) H 08/28/21 05:17 MCH 32 pg (28-32) 08/28/21 05:17 MCHC 33 % (32-34) 08/28/21 05:17 RDW 15.4 % (13.2-15.2) H 08/28/21 05:17 Plt Count 178 K/mm3 (140-440) 08/28/21 05:17 Lymph % (Auto) 33.2 % (13.4-35.0) 08/28/21 05:17 [place] % (Auto) 12.4 % (0.0-7.3) H 08/28/21 05:17 Eos % (Auto) 0.2 % (0.0-4.3) 08/28/21 05:17 Baso % (Auto) 0.3 % (0.0-1.8) 08/28/21 05:17 Lymph # (Auto) 2.4 K/mm3 (1.2-5.4) 08/28/21 05:17 [place] # (Auto) 0.9 K/mm3 (0.0-0.8) H 08/28/21 05:17 Eos # (Auto) 0.0 K/mm3 (0.0-0.4) 08/28/21 05:17 Baso # (Auto) 0.0 K/mm3 (0.0-0.1) 08/28/21 05:17 Seg Neutrophils % 53.9 % (40.0-70.0) 08/28/21 05:17 Seg Neutrophils # 3.8 K/mm3 (1.8-7.7) 08/28/21 05:17 PT 13.2 Sec. (12.2-14.9) 08/26/21 14:56 INR 0.91 (0.87-1.13) 08/26/21 14:56 APTT 30.1 Sec. (24.2-36.6) 08/26/21 14:56 Thrombin Time 17.8 Sec. (15.1-19.6) 08/26/21 14:56 Sodium 137 mmol/L (137-145) 08/28/21 05:17 Potassium 3.5 mmol/L (3.6-5.0) L 08/28/21 05:17 Chloride 101.8 mmol/L (98-107) 08/28/21 05:17 Carbon Dioxide 23 mmol/L (22-30) 08/28/21 05:17 Anion Gap 16 mmol/L 08/28/21 05:17 BUN 12 mg/dL (9-20) 08/28/21 05:17 Creatinine 1.1 mg/dL (0.8-1.3) 08/28/21 05:17 Estimated GFR > 60 ml/min 08/28/21 05:17 BUN/Creatinine Ratio 11 % 08/28/21 05:17 Glucose 125 mg/dL (75-100) H 08/28/21 05:17 Calcium 9.2 mg/dL (8.4-10.2) 08/28/21 05:17 Urine Opiates Screen Presumptive negative 08/26/21 Unknown Urine Methadone Screen Presumptive negative 08/26/21 Unknown Ur Barbiturates Screen Presumptive negative 08/26/21 Unknown Ur Phencyclidine Scrn Presumptive negative 08/26/21 Unknown Ur Amphetamines Screen Presumptive negative 08/26/21 Unknown U Benzodiazepines Scrn Presumptive negative 08/26/21 Unknown Urine Cocaine Screen Presumptive negative 08/26/21 Unknown U Marijuana (THC) Screen Presumptive positive 08/26/21 Unknown Drugs of Abuse Note Disclamer 08/26/21 Unknown Camacho/IV: Voiding Method Condom Catheter Active Medications - Current Medications Current Medications: Generic Name Dose Route Start Last Admin Trade Name Freq PRN Reason Stop Dose Admin Acetaminophen 650 mg 08/27/21 05:07 Acetaminophen 325 Mg Tab PO Q4H PRN Pain MILD(1-3)/Fever >100.5/ESTES Albuterol 2.5 mg 08/27/21 05:07 Albuterol 2.5 Mg/3 Ml Nebu IH Q3HRT PRN Shortness Of Breath Aspirin 325 mg 08/27/21 10:00 08/28/21 09:05 Aspirin 325 Mg Tab PO 325 mg QDAY TRACEY Administration Atorvastatin Calcium 40 mg 08/27/21 22:00 08/27/21 23:14 Atorvastatin 40 Mg Tab PO 40 mg QHS TRACEY Administration Famotidine 20 mg 08/27/21 10:00 08/28/21 09:06 Famotidine 20 Mg Tab PO 20 mg BID TRACEY Administration Hydralazine HCl 10 mg 08/27/21 05:07 08/28/21 09:05 Hydralazine 20 Mg/1 Ml Inj IV 10 mg Q6H PRN Administration Blood Pressure Hydromorphone HCl 0.5 mg 08/27/21 05:07 Hydromorphone 1 Mg/1 Ml Inj IV Q3H PRN Pain , Severe (7-10) Dextrose/Sodium Chloride 1,000 mls @ 100 mls/hr 08/27/21 06:00 08/27/21 08:48 D5/0.45ns IV 100 mls/hr DIRECT TRACEY Administration Labetalol HCl 10 mg 08/27/21 05:07 08/27/21 07:56 Labetalol 20 Mg/4 Ml Inj IV 10 mg Q5MIN PRN Administration to maintain SBP < 180 Morphine Sulfate 2 mg 08/27/21 05:07 Morphine 2 Mg/1 Ml Inj IV Q4H PRN Pain, Moderate (4-6) Ondansetron HCl 4 mg 08/27/21 05:07 Ondansetron 4 Mg/2 Ml Inj IV Q8H PRN Nausea And Vomiting Sodium Chloride 10 ml 08/27/21 10:00 08/28/21 09:06 Sodium Chloride 0.9% 10 Ml Flush Syringe IV 10 ml BID TRACEY Administration Sodium Chloride 10 ml 08/27/21 05:07 Sodium Chloride 0.9% 10 Ml Flush Syringe IV PRN PRN LINE FLUSH Sodium Chloride 10 ml 08/27/21 05:07 Sodium Chloride 0.9% 10 Ml Flush Syringe IV PRN PRN LINE FLUSH
[2021-08-28] MEDS: NIFEdipine XL 30 MG TAB PO SCH ×3 (14:59→21:09)
[2021-08-29] MEDS: ASPIRIN 325 MG TAB PO SCH (10:27)
[2021-08-29] MEDS: NIFEdipine XL 30 MG TAB PO SCH ×2 (10:27→21:09)
[2021-08-29] MEDS: FAMOTIDINE 20 MG TAB PO SCH ×2 (10:28→21:09)
--- NOTE | 2021-08-29 12:10 | Progress Note ---
Assessment and Plan Assessment and plan: 46-year-old male with history of hypertension was brought to the hospital because of right-sided weakness. Patient states at 21: 00 on the night [employer]EARCH AND DEVELOPMENT DIRECTOR, he noticed weakness in his right arm and right leg. EMS was called the morning RESEARCH AND DEVELOPMENT DIRECTOR and the patient reportedly was unable to stand secondary to the right leg weakness. When the patient was first encountered, he was alert and oriented however during transport some of his answers to questions were inappropriate per EMS. Upon arrival to the ED EMS states the patient became more appropriate. Initial CT scan of the head shows no acute intracranial abnormality. Subsequently patient was seen and evaluated by telemetry neurology. The patient was deemed out of the window for TPA. The patient was admitted with diagnosis below Acute CVA Accelerated hypertension Medical noncompliance Marijuana use daily 08/27/2021. Patient appears to exhibit expressive aphasia. Patient reportedly has been noncompliant with his BP medications. Neurology consultation is pending. Continue to stroke pathway and secondary prevention with aspirin and Lipitor. Permissive hypertension to maintain systolic blood pressure 160 [id number] mmHg. PT/OT/ST. Follow-up echocardiogram, MRI. CT head, CTA head and neck were found to be negative. 08/28/2021. MRI revealed acute/early subacute ischemic changes seen in small areas of left ERICK and or MCA territories. No definitive signs of large vessel occlusion however there is a small portion of the left anterior cerebral artery which is nearly completely occluded where the vessel passes around the genu of the corpus callosum. This findings most likely explain ischemic pattern. Moderate concentric left ventricular hypertrophy the left ventricular systolic function is normal with EF of 55-55%. I discussed the case with [facility] neuro intervention and they did not recommend any further evaluation. Physical th jolly evaluated the patient and recommended acute rehab. Continue aspirin and Lipitor for secondary prevention 08/29/2021. I discussed the case with neuro interventionalists at [facility] and no recommendations were for transfer or intervention. Continue aspirin and Lipitor for CVA. Physical therapy recommends acute rehab. History Interval history: No new issues overnight. Hospitalist Physical - Constitutional Vitals: Temp Pulse Resp BP Pulse Ox 98.6 F 96 H 17 176/131 97 08/29/21 11:10 08/29/21 11:10 08/29/21 11:10 08/29/21 11:10 08/29/21 11:10 General appearance: Present: no acute distress, well-nourished - EENT Eyes: Present: PERRL, EOM intact ENT: hearing intact, clear oral mucosa, dentition normal - Neck Neck: Present: supple, normal ROM - Respiratory Respiratory effort: normal Respiratory: bilateral: CTA - Cardiovascular Rhythm: regular Heart Sounds: Present: S1 & S2. Absent: gallop, rub - Extremities Extremities: no ischemia, No edema, Full ROM - Abdominal General gastrointestinal: soft, non-tender, non-distended, normal bowel sounds - Integumentary Integumentary: Present: clear, warm, dry - Neurologic Neurologic: CNII-XII intact, moves all extremities Results - Labs CBC & Chem 7: 08/28/21 05:17 08/28/21 05:17 Labs: Laboratory Last Values WBC 7.1 K/mm3 (4.5-11.0) 08/28/21 05:17 RBC 5.03 M/mm3 (3.65-5.03) 08/28/21 05:17 Hgb 16.3 gm/dl (11.8-15.2) H 08/28/21 05:17 Hct 49.2 % (35.5-45.6) H 08/28/21 05:17 MCV 98 fl (84-94) H 08/28/21 05:17 MCH 32 pg (28-32) 08/28/21 05:17 MCHC 33 % (32-34) 08/28/21 05:17 RDW 15.4 % (13.2-15.2) H 08/28/21 05:17 Plt Count 178 K/mm3 (140-440) 08/28/21 05:17 Lymph % (Auto) 33.2 % (13.4-35.0) 08/28/21 05:17 [place] % (Auto) 12.4 % (0.0-7.3) H 08/28/21 05:17 Eos % (Auto) 0.2 % (0.0-4.3) 08/28/21 05:17 Baso % (Auto) 0.3 % (0.0-1.8) 08/28/21 05:17 Lymph # (Auto) 2.4 K/mm3 (1.2-5.4) 08/28/21 05:17 [place] # (Auto) 0.9 K/mm3 (0.0-0.8) H 08/28/21 05:17 Eos # (Auto) 0.0 K/mm3 (0.0-0.4) 08/28/21 05:17 Baso # (Auto) 0.0 K/mm3 (0.0-0.1) 08/28/21 05:17 Seg Neutrophils % 53.9 % (40.0-70.0) 08/28/21 05:17 Seg Neutrophils # 3.8 K/mm3 (1.8-7.7) 08/28/21 05:17 PT 13.2 Sec. (12.2-14.9) 08/26/21 14:56 INR 0.91 (0.87-1.13) 08/26/21 14:56 APTT 30.1 Sec. (24.2-36.6) 08/26/21 14:56 Thrombin Time 17.8 Sec. (15.1-19.6) 08/26/21 14:56 Sodium 137 mmol/L (137-145) 08/28/21 05:17 Potassium 3.5 mmol/L (3.6-5.0) L 08/28/21 05:17 Chloride 101.8 mmol/L (98-107) 08/28/21 05:17 Carbon Dioxide 23 mmol/L (22-30) 08/28/21 05:17 Anion Gap 16 mmol/L 08/28/21 05:17 BUN 12 mg/dL (9-20) 08/28/21 05:17 Creatinine 1.1 mg/dL (0.8-1.3) 08/28/21 05:17 Estimated GFR > 60 ml/min 08/28/21 05:17 BUN/Creatinine Ratio 11 % 08/28/21 05:17 Glucose 125 mg/dL (75-100) H 08/28/21 05:17 Calcium 9.2 mg/dL (8.4-10.2) 08/28/21 05:17 Urine Opiates Screen Presumptive negative 08/26/21 Unknown Urine Methadone Screen Presumptive negative 08/26/21 Unknown Ur Barbiturates Screen Presumptive negative 08/26/21 Unknown Ur Phencyclidine Scrn Presumptive negative 08/26/21 Unknown Ur Amphetamines Screen Presumptive negative 08/26/21 Unknown U Benzodiazepines Scrn Presumptive negative 08/26/21 Unknown Urine Cocaine Screen Presumptive negative 08/26/21 Unknown U Marijuana (THC) Screen Presumptive positive 08/26/21 Unknown Drugs of Abuse Note Disclamer 08/26/21 Unknown Camacho/IV: Voiding Method Condom Catheter Active Medications - Current Medications Current Medications: Generic Name Dose Route Start Last Admin Trade Name Freq PRN Reason Stop Dose Admin Acetaminophen 650 mg 08/27/21 05:07 Acetaminophen 325 Mg Tab PO Q4H PRN Pain MILD(1-3)/Fever >100.5/ESTES Albuterol 2.5 mg 08/27/21 05:07 Albuterol 2.5 Mg/3 Ml Nebu IH Q3HRT PRN Shortness Of Breath Aspirin 325 mg 08/27/21 10:00 08/29/21 10:27 Aspirin 325 Mg Tab PO 325 mg QDAY TRACEY Administration Atorvastatin Calcium 40 mg 08/27/21 22:00 08/28/21 21:09 Atorvastatin 40 Mg Tab PO 40 mg QHS TRACEY Administration Famotidine 20 mg 08/27/21 10:00 08/29/21 10:28 Famotidine 20 Mg Tab PO 20 mg BID TRACEY Administration Hydralazine HCl 10 mg 08/27/21 05:07 08/28/21 23:52 Hydralazine 20 Mg/1 Ml Inj IV 10 mg Q6H PRN Administration Blood Pressure Hydromorphone HCl 0.5 mg 08/27/21 05:07 Hydromorphone 1 Mg/1 Ml Inj IV Q3H PRN Pain , Severe (7-10) Morphine Sulfate 2 mg 08/27/21 05:07 Morphine 2 Mg/1 Ml Inj IV Q4H PRN Pain, Moderate (4-6) Nifedipine 30 mg 08/28/21 15:00 08/29/21 10:27 Nifedipine Xl 30 Mg Tab PO 30 mg Q12HR TRACEY Administration Ondansetron HCl 4 mg 08/27/21 05:07 Ondansetron 4 Mg/2 Ml Inj IV Q8H PRN Nausea And Vomiting Sodium Chloride 10 ml 08/27/21 10:00 08/29/21 10:28 Sodium Chloride 0.9% 10 Ml Flush Syringe IV 10 ml BID TRACEY Administration Sodium Chloride 10 ml 08/27/21 05:07 Sodium Chloride 0.9% 10 Ml Flush Syringe IV PRN PRN LINE FLUSH Sodium Chloride 10 ml 08/27/21 05:07 Sodium Chloride 0.9% 10 Ml Flush Syringe IV PRN PRN LINE FLUSH
[2021-08-29] MEDS: hydrALAZINE 20 MG/1 ML INJ IV PRN (18:32)
[2021-08-30] MEDS: hydrALAZINE 20 MG/1 ML INJ IV PRN ×2 (00:34→19:02)
[2021-08-30] MEDS: NIFEdipine XL 30 MG TAB PO SCH (10:43)
[2021-08-30] MEDS: ASPIRIN 325 MG TAB PO SCH (10:43)
[2021-08-30] MEDS: FAMOTIDINE 20 MG TAB PO SCH ×2 (10:43→21:30)
--- NOTE | 2021-08-30 13:51 | Progress Note ---
Assessment and Plan Assessment and plan: 46-year-old male with history of hypertension was brought to the hospital because of right-sided weakness. 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 EMS was called the morning [employer] and the patient reportedly was unable to stand secondary to the right leg weakness. When the patient was first encountered, he was alert and oriented however during transport some of his answers to questions were inappropriate per EMS. Upon arrival to the ED EMS states the patient became more appropriate. Initial CT scan of the head shows no acute intracranial abnormality. Subsequently patient was seen and evaluated by telemetry neurology. The patient was deemed out of the window for TPA. The patient was admitted with diagnosis below Acute CVA Accelerated hypertension Medical noncompliance Marijuana use daily 08/27/2021. Patient appears to exhibit expressive aphasia. Patient reportedly has been noncompliant with his BP medications. Neurology consultation is pending. Continue to stroke pathway and secondary prevention with aspirin and Lipitor. Permissive hypertension to maintain systolic blood pressure 160 [id number] mmHg. PT/OT/ST. Follow-up echocardiogram, MRI. CT head, CTA head and neck were found to be negative. 08/28/2021. MRI revealed acute/early subacute ischemic changes seen in small areas of left ERICK and or MCA territories. No definitive signs of large vessel occlusion however there is a small portion of the left anterior cerebral artery which is nearly completely occluded where the vessel passes around the genu of the corpus callosum. This findings most likely explain ischemic pattern. Moderate concentric left ventricular hypertrophy the left ventricular systolic function is normal with EF of 55-55%. I discussed the case with [facility] neuro intervention and they did not recommend any further evaluation. Physical th jolly evaluated the patient and recommended acute rehab. Continue aspirin and Lipitor for secondary prevention 08/29/2021. I discussed the case with neuro interventionalists at [facility] and no recommendations were for transfer or intervention. Continue aspirin and Lipitor for CVA. Physical therapy recommends acute rehab. 08/30/2021. Continue aspirin and Lipitor for secondary prevention. Physical therapy recommends acute rehab. Case management to discuss with the IRU director at our facility for possible [facility] admission. Patient is uninsured. Continue PT/OT History Interval history: No new issues overnight. Hospitalist Physical - Constitutional Vitals: Temp Pulse Resp BP Pulse Ox 98.9 F 89 16 166/116 97 04/04/22 11:31 08/30/21 11:31 08/30/21 03:26 08/30/21 11:31 08/30/21 11:31 General appearance: Present: no acute distress, well-nourished - EENT Eyes: Present: PERRL, EOM intact ENT: hearing intact, clear oral mucosa, dentition normal - Neck Neck: Present: supple, normal ROM - Respiratory Respiratory effort: normal Respiratory: bilateral: CTA - Cardiovascular Rhythm: regular Heart Sounds: Present: S1 & S2. Absent: gallop, rub - Extremities Extremities: no ischemia, No edema, Full ROM - Abdominal General gastrointestinal: soft, non-tender, non-distended, normal bowel sounds - Integumentary Integumentary: Present: clear, warm, dry - Neurologic Neurologic: CNII-XII intact, moves all extremities Results - Labs CBC & Chem 7: 08/28/21 05:17 08/28/21 05:17 Labs: Laboratory Last Values WBC 7.1 K/mm3 (4.5-11.0) 08/28/21 05:17 RBC 5.03 M/mm3 (3.65-5.03) 08/28/21 05:17 Hgb 16.3 gm/dl (11.8-15.2) H 08/28/21 05:17 Hct 49.2 % (35.5-45.6) H 08/28/21 05:17 MCV 98 fl (84-94) H 08/28/21 05:17 MCH 32 pg (28-32) 08/28/21 05:17 MCHC 33 % (32-34) 08/28/21 05:17 RDW 15.4 % (13.2-15.2) H 08/28/21 05:17 Plt Count 178 K/mm3 (140-440) 08/28/21 05:17 Lymph % (Auto) 33.2 % (13.4-35.0) 08/28/21 05:17 [place] % (Auto) 12.4 % (0.0-7.3) H 08/28/21 05:17 Eos % (Auto) 0.2 % (0.0-4.3) 08/28/21 05:17 Baso % (Auto) 0.3 % (0.0-1.8) 08/28/21 05:17 Lymph # (Auto) 2.4 K/mm3 (1.2-5.4) 08/28/21 05:17 [place] # (Auto) 0.9 K/mm3 (0.0-0.8) H 08/28/21 05:17 Eos # (Auto) 0.0 K/mm3 (0.0-0.4) 08/28/21 05:17 Baso # (Auto) 0.0 K/mm3 (0.0-0.1) 08/28/21 05:17 Seg Neutrophils % 53.9 % (40.0-70.0) 08/28/21 05:17 Seg Neutrophils # 3.8 K/mm3 (1.8-7.7) 08/28/21 05:17 PT 13.2 Sec. (12.2-14.9) 08/26/21 14:56 INR 0.91 (0.87-1.13) 08/26/21 14:56 APTT 30.1 Sec. (24.2-36.6) 08/26/21 14:56 Thrombin Time 17.8 Sec. (15.1-19.6) 08/26/21 14:56 Sodium 137 mmol/L (137-145) 08/28/21 05:17 Potassium 3.5 mmol/L (3.6-5.0) L 08/28/21 05:17 Chloride 101.8 mmol/L (98-107) 08/28/21 05:17 Carbon Dioxide 23 mmol/L (22-30) 08/28/21 05:17 Anion Gap 16 mmol/L 08/28/21 05:17 BUN 12 mg/dL (9-20) 08/28/21 05:17 Creatinine 1.1 mg/dL (0.8-1.3) 08/28/21 05:17 Estimated GFR > 60 ml/min 08/28/21 05:17 BUN/Creatinine Ratio 11 % 08/28/21 05:17 Glucose 125 mg/dL (75-100) H 08/28/21 05:17 Calcium 9.2 mg/dL (8.4-10.2) 08/28/21 05:17 Urine Opiates Screen Presumptive negative 08/26/21 Unknown Urine Methadone Screen Presumptive negative 08/26/21 Unknown Ur Barbiturates Screen Presumptive negative 08/26/21 Unknown Ur Phencyclidine Scrn Presumptive negative 08/26/21 Unknown Ur Amphetamines Screen Presumptive negative 08/26/21 Unknown U Benzodiazepines Scrn Presumptive negative 08/26/21 Unknown Urine Cocaine Screen Presumptive negative 08/26/21 Unknown U Marijuana (THC) Screen Presumptive positive 08/26/21 Unknown Drugs of Abuse Note Disclamer 08/26/21 Unknown Camacho/IV: Voiding Method Condom Catheter Active Medications - Current Medications Current Medications: Generic Name Dose Route Start Last Admin Trade Name Freq PRN Reason Stop Dose Admin Acetaminophen 650 mg 08/27/21 05:07 Acetaminophen 325 Mg Tab PO Q4H PRN Pain MILD(1-3)/Fever >100.5/ESTES Albuterol 2.5 mg 08/27/21 05:07 Albuterol 2.5 Mg/3 Ml Nebu IH Q3HRT PRN Shortness Of Breath Aspirin 325 mg 08/27/21 10:00 08/30/21 10:43 Aspirin 325 Mg Tab PO 325 mg QDAY TRACEY Administration Atorvastatin Calcium 40 mg 08/27/21 22:00 08/29/21 21:09 Atorvastatin 40 Mg Tab PO 40 mg QHS TRACEY Administration Famotidine 20 mg 08/27/21 10:00 08/30/21 10:43 Famotidine 20 Mg Tab PO 20 mg BID TRACEY Administration Hydralazine HCl 10 mg 08/27/21 05:07 08/30/21 00:34 Hydralazine 20 Mg/1 Ml Inj IV 10 mg Q6H PRN Administration Blood Pressure Hydromorphone HCl 0.5 mg 08/27/21 05:07 Hydromorphone 1 Mg/1 Ml Inj IV Q3H PRN Pain , Severe (7-10) Morphine Sulfate 2 mg 08/27/21 05:07 Morphine 2 Mg/1 Ml Inj IV Q4H PRN Pain, Moderate (4-6) Nifedipine 30 mg 08/28/21 15:00 08/30/21 10:43 Nifedipine Xl 30 Mg Tab PO 30 mg Q12HR TRACEY Administration Ondansetron HCl 4 mg 08/27/21 05:07 Ondansetron 4 Mg/2 Ml Inj IV Q8H PRN Nausea And Vomiting Sodium Chloride 10 ml 08/27/21 10:00 08/30/21 10:44 Sodium Chloride 0.9% 10 Ml Flush Syringe IV 10 ml BID TRACEY Administration Sodium Chloride 10 ml 08/27/21 05:07 Sodium Chloride 0.9% 10 Ml Flush Syringe IV PRN PRN LINE FLUSH Sodium Chloride 10 ml 08/27/21 05:07 Sodium Chloride 0.9% 10 Ml Flush Syringe IV PRN PRN LINE FLUSH
[2021-08-30] MEDS: NIFEdipine XL 60 MG TAB PO SCH (21:30)
[2021-08-31] MEDS ORDERED: ZOLPIDEM 5 MG TAB PO ONE (00:25)
--- NOTE | 2021-08-31 07:41 | Event Note ---
Date: 08/31/21 Patient has been reviewed for [facility] bed in IRU. Appears to be a good candidate from a medical and therapy point of view. Would like to see little better control over blood pressure prior to admission if possible as his systolic is >160 on [place] and diastolic is consistently greater than 100 over the past several days and we are past 24-48 hr permissive hypertension window. Will defer timing of admission to rehab nursing tech and primary team.
[2021-08-31] MEDS: NIFEdipine XL 60 MG TAB PO SCH (09:59)
[2021-08-31] MEDS: ASPIRIN 325 MG TAB PO SCH (09:59)
[2021-08-31] MEDS: FAMOTIDINE 20 MG TAB PO SCH ×2 (10:00→21:27)
[2021-08-31] MEDS ORDERED: LOSARTAN 50 MG TAB PO SCH (10:00)
--- NOTE | 2021-08-31 10:30 | Consultation ---
History of Present Illness Consult date: 08/31/21 Reason for Consult: CVA Chief complaint: This is a new consult for CVA . The patient reports improvement in speech and weakness . Past History Past Medical History: hypertension Past Surgical History: No surgical history Social history: other (No smoking) Family history: no significant family history Medications and Allergies Allergies Allergy/AdvReac Type Severity Reaction Status Date / Time No Known Allergies Allergy Unverified 08/26/21 17:16 Active Meds: Active Medications Acetaminophen (Acetaminophen 325 Mg Tab) 650 mg PO Q4H PRN PRN Reason: Pain MILD(1-3)/Fever >100.5/ESTES Albuterol (Albuterol 2.5 Mg/3 Ml Nebu) 2.5 mg IH Q3HRT PRN PRN Reason: Shortness Of Breath Aspirin (Aspirin 325 Mg Tab) 325 mg PO QDAY [facility] Last Admin: 08/31/21 09:59 Dose: 325 mg Atorvastatin Calcium (Atorvastatin 40 Mg Tab) 40 mg PO QHS [facility] Last Admin: 08/30/21 21:30 Dose: 40 mg Famotidine (Famotidine 20 Mg Tab) 20 mg PO BID [facility] Last Admin: 08/31/21 10:00 Dose: 20 mg Hydralazine HCl (Hydralazine 20 Mg/1 Ml Inj) 10 mg IV Q6H PRN PRN Reason: Blood Pressure Last Admin: 08/30/21 19:02 Dose: 10 mg Hydromorphone HCl (Hydromorphone 1 Mg/1 Ml Inj) 0.5 mg IV Q3H PRN PRN Reason: Pain , Severe (7-10) Losartan Potassium (Losartan 50 Mg Tab) 50 mg PO QDAY [facility] Last Admin: 08/31/21 10:00 Dose: 50 mg Morphine Sulfate (Morphine 2 Mg/1 Ml Inj) 2 mg IV Q4H PRN PRN Reason: Pain, Moderate (4-6) Nifedipine (Nifedipine Xl 60 Mg Tab) 60 mg PO Q12HR [facility] Last Admin: 08/31/21 09:59 Dose: 60 mg Ondansetron HCl (Ondansetron 4 Mg/2 Ml Inj) 4 mg IV Q8H PRN PRN Reason: Nausea And Vomiting Sodium Chloride (Sodium Chloride 0.9% 10 Ml Flush Syringe) 10 ml IV BID [facility] Last Admin: 08/31/21 10:00 Dose: 10 ml Sodium Chloride (Sodium Chloride 0.9% 10 Ml Flush Syringe) 10 ml IV PRN PRN PRN Reason: LINE FLUSH Physical Examination - Vital Signs Vital Signs: Vital Signs Pulse Resp Pulse Ox 88 20 96 08/26/21 14:51 08/26/21 14:51 08/26/21 14:51 - Physical Exam Narrative exam: The patient is alert. There is weakness in the right upper and lower extremity , Left Upper and Lower Extremity strength is 5/5 there is no aphasia . Results - Laboratory Findings CBC and BMP: 08/28/21 05:17 08/28/21 05:17 Abnormal Lab Findings: Abnormal Labs 08/26/21 08/26/21 08/28/21 14:56 14:56 05:17 Hgb 15.5 H 16.3 H Hct 46.0 H 49.2 H MCV 98 H 98 H MCH 33 H RDW 15.4 H [place] % (Auto) 9.6 H 12.4 H [place] # (Auto) 0.9 H Potassium Carbon Dioxide 20 L Glucose 114 H 08/28/21 05:17 Hgb Hct MCV MCH RDW [place] % (Auto) [place] # (Auto) Potassium 3.5 L Carbon Dioxide Glucose 125 H Assessment and Plan 1. ? ERICK Occlusion which seems to be new ? CTA did show this abnormality, I strongly recommend MRA Brain repeat . 2. Continue all Home Medications . 3. Risk Factors for CVA discussed . 4. Discussed with Family . 5. Patient should not be discharged till MRA Brain repeat is not done . 6. Follow up in am Dr. Tim VALDIVIA
--- NOTE | 2021-08-31 12:44 | Magnetic Resonance Report ---
MRA HEAD WITHOUT CONTRAST HISTORY: Headaches COMPARISON: MRA of the head from 08/27/2021 TECHNIQUE: Routine MRA of the head is performed. 3-D/MIP reformats postprocessed. CONTRAST: None. FINDINGS: Intracranial vertebral arteries: Vertebral artery normal; focal stenoses in the distal left vertebral artery near basilar formation; unchanged Basilar artery: No significant abnormality. Posterior cerebral arteries: No significant abnormality. Intracranial internal carotid arteries: No significant abnormality. 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 This has opened up very slightly. There is still 5 mm long very stenotic le chauncey in the left A2 segment. Right A2 segment is normal. Middle cerebral arteries: No significant abnormality. Variants and anomalies:None Additional findings: None. IMPRESSION: Focal area of severe stenoses in the left A2 segment has opened up very slightly Signer Name: Veronica Garrido MD Signed: 08/31/2021 12:40 PM Workstation Name: [id number]
[2021-08-31] MEDS: hydrALAZINE 20 MG/1 ML INJ IV PRN (13:40)
--- NOTE | 2021-08-31 15:10 | Progress Note ---
Subjective Date of service: 08/31/21 Principal diagnosis: CVA Interval history: Discussion of the MRA Brain - there is an improvement with the focal blood flow since the MRA on 06/01 , ? CTA was normal on admission , My suspicion is more likely embolic , needs a comprehensive cardiac workup including out patient including Holter Moniter , Patient should be on Dual Therapy ASA 81 mg + Plavix 75mg once a day . I will follow up in office in next [address] Dumont ( Call Back with Questions ). Objective - Vital Sign Vital Signs - 12hr 08/31/21 08/31/21 08/31/21 04:38 07:20 07:46 Temperature 98.2 F 98.9 F Pulse Rate 99 H 77 96 H Pulse Rate [ From Monitor] Respiratory 19 18 Rate Blood Pressure 152/96 163/113 Blood Pressure [Right] O2 Sat by Pulse 97 93 Oximetry 08/31/21 08/31/21 08/31/21 12:10 12:42 13:40 Temperature 98.5 F Pulse Rate 93 H 80 Pulse Rate [ 77 From Monitor] Respiratory 18 18 Rate Blood Pressure 178/123 Blood Pressure 182/121 [Right] O2 Sat by Pulse 97 92 Oximetry - Laboratory Findings CBC and BMP: 08/28/21 05:17 08/28/21 05:17 Abnormal Lab Findings: Abnormal Labs 08/26/21 08/26/21 08/28/21 14:56 14:56 05:17 Hgb 15.5 H 16.3 H Hct 46.0 H 49.2 H MCV 98 H 98 H MCH 33 H RDW 15.4 H [place] % (Auto) 9.6 H 12.4 H [place] # (Auto) 0.9 H Potassium Carbon Dioxide 20 L Glucose 114 H 08/28/21 05:17 Hgb Hct MCV MCH RDW [place] % (Auto) [place] # (Auto) Potassium 3.5 L Carbon Dioxide Glucose 125 H
[2021-08-31] MEDS ORDERED: NIFEdipine XL 30 MG TAB PO ONE (15:17)
[2021-08-31] MEDS ORDERED: hydrALAZINE 20 MG/1 ML INJ IV ONE (15:18)
--- NOTE | 2021-08-31 15:27 | Progress Note ---
Assessment and Plan Assessment and plan: 46-year-old male with history of hypertension was brought to the hospital because of right-sided weakness. Patient states at 21: 00 on the night [employer], he noticed weakness in his right arm and right leg. EMS was called the morning [employer] and the patient reportedly was unable to stand secondary to the right leg weakness. When the patient was first encountered, he was alert and oriented however during transport some of his answers to questions were inappropriate per EMS. Upon arrival to the ED EMS states the patient became more appropriate. Initial CT scan of the head shows no acute intracranial abnormality. Subsequently patient was seen and evaluated by telemetry neurology. The patient was deemed out of the window for TPA. The patient was admitted with diagnosis below #Acute CVA #Accelerated hypertension #Medical noncompliance #Polysubstance dependence -Patient engages in the following substances: Marijuana daily -Counseled patient about the importance of cessation of substance abuse. Offered resources to help with quitting. Patient expresses understanding. -Time: +10 mins #Obesity #Weight loss counseling #Exercise counseling - BMI 31.4 - Counseled patient on the importance of weight loss, incorporating exercise, and dietary changes (lean meats, fresh fruits and vegetables, and water intake). Patient expresses understanding. - Time: +10 min #Advanced care planning -Disease education conducted, care plan discussed, diagnoses discussed, prognosis discussed, and patient acknowledges understanding with care plan -Time: +30 min 08/27/2021. Patient appears to exhibit expressive aphasia. Patient reportedly has been noncompliant with his BP medications. Neurology consultation is pending. Continue to stroke pathway and secondary prevention with aspirin and Lipitor. Permissive hypertension to maintain systolic blood pressure 160 [id number] mmHg. PT/OT/ST. Follow-up echocardiogram, MRI. CT head, CTA head and neck were found to be negative. 08/28/2021. MRI revealed acute/early subacute ischemic changes seen in small areas of left ERICK and or MCA territories. No definitive signs of large vessel occlusion however there is a small portion of the left anterior cerebral artery which is nearly completely occluded where the vessel passes around the genu of the corpus callosum. This findings most likely explain ischemic pattern. Moderate concentric left ventricular hypertrophy the left ventricular systolic function is normal with EF of 55-55%. I discussed the case with [place] neuro intervention and they did not recommend any further evaluation. Physical therapy evaluated the patient and recommended acute rehab. Continue aspirin and Lipitor for secondary prevention 08/29/2021. I discussed the case with neuro interventionalists at [facility] and no recommendations were for transfer or intervention. Continue aspirin and Lipitor for CVA. Physical therapy recommends acute rehab. 08/30/2021. Continue aspirin and Lipitor for secondary prevention. Physical therapy recommends acute rehab. Case management to discuss with the IRU director at our facility for possible sylvester admission. Patient is uninsured. Continue PT/OT 08/31/2021: Started losartan 50 mg daily; however, the patient's blood pressure significantly worsened. Possible concern for renal artery stenosis. Discontinuing ARB and ordering bilateral renal ultrasound for further assessm ent. Increasing nifedipine to 90 mg daily. Starting Coreg 6.25 mg twice daily, and p.o. hydralazine 50 mg every 8 hours. Disposition Plan: Continue medical management Total Time Spent with Patient (Minutes): 45 minutes History Interval history: No acute events overnight. Hospitalist Physical - Constitutional Vitals: Temp Pulse Resp BP Pulse Ox 98.5 F 80 18 182/121 92 08/31/21 12:42 08/31/21 13:40 08/31/21 12:42 08/31/21 13:40 08/31/21 12:42 General appearance: Present: no acute distress, well-nourished, obese - EENT Eyes: Present: PERRL, EOM intact ENT: hearing intact, clear oral mucosa, dentition normal - Neck Neck: Present: supple, normal ROM - Respiratory Respiratory effort: normal Respiratory: bilateral: CTA - Cardiovascular Rhythm: regular Heart Sounds: Present: S1 & S2 - Extremities Extremities: no ischemia, pulses intact, pulses symmetrical, No edema, normal temperature, normal color Peripheral Pulses: within normal limits - Abdominal General gastrointestinal: soft, non-tender, non-distended, normal bowel sounds - Integumentary Integumentary: Present: clear, warm, dry - Psychiatric Psychiatric: appropriate mood/affect, cooperative - Neurologic Neurologic: CNII-XII intact - Allied Health Allied health notes reviewed: nursing Results - Labs CBC & Chem 7: 08/28/21 05:17 08/28/21 05:17 Labs: Laboratory Last Values WBC 7.1 K/mm3 (4.5-11.0) 08/28/21 05:17 RBC 5.03 M/mm3 (3.65-5.03) 08/28/21 05:17 Hgb 16.3 gm/dl (11.8-15.2) H 08/28/21 05:17 Hct 49.2 % (35.5-45.6) H 08/28/21 05:17 MCV 98 fl (84-94) H 08/28/21 05:17 MCH 32 pg (28-32) 08/28/21 05:17 MCHC 33 % (32-34) 08/28/21 05:17 RDW 15.4 % (13.2-15.2) H 08/28/21 05:17 Plt Count 178 K/mm3 (140-440) 08/28/21 05:17 Lymph % (Auto) 33.2 % (13.4-35.0) 08/28/21 05:17 Gonzales % (Auto) 12.4 % (0.0-7.3) H 08/28/21 05:17 Eos % (Auto) 0.2 % (0.0-4.3) 08/28/21 05:17 Baso % (Auto) 0.3 % (0.0-1.8) 08/28/21 05:17 Lymph # (Auto) 2.4 K/mm3 (1.2-5.4) 08/28/21 05:17 Gonzales # (Auto) 0.9 K/mm3 (0.0-0.8) H 08/28/21 05:17 Eos # (Auto) 0.0 K/mm3 (0.0-0.4) 08/28/21 05:17 Baso # (Auto) 0.0 K/mm3 (0.0-0.1) 08/28/21 05:17 Seg Neutrophils % 53.9 % (40.0-70.0) 08/28/21 05:17 Seg Neutrophils # 3.8 K/mm3 (1.8-7.7) 08/28/21 05:17 PT 13.2 Sec. (12.2-14.9) 08/26/21 14:56 INR 0.91 (0.87-1.13) 08/26/21 14:56 APTT 30.1 Sec. (24.2-36.6) 08/26/21 14:56 Thrombin Time 17.8 Sec. (15.1-19.6) 08/26/21 14:56 Sodium 137 mmol/L (137-145) 08/28/21 05:17 Potassium 3.5 mmol/L (3.6-5.0) L 08/28/21 05:17 Chloride 101.8 mmol/L (98-107) 08/28/21 05:17 Carbon Dioxide 23 mmol/L (22-30) 08/28/21 05:17 Anion Gap 16 mmol/L 08/28/21 05:17 BUN 12 mg/dL (9-20) 08/28/21 05:17 Creatinine 1.1 mg/dL (0.8-1.3) 08/28/21 05:17 Estimated GFR > 60 ml/min 08/28/21 05:17 BUN/Creatinine Ratio 11 % 08/28/21 05:17 Glucose 125 mg/dL (75-100) H 08/28/21 05:17 Calcium 9.2 mg/dL (8.4-10.2) 08/28/21 05:17 Urine Opiates Screen Presumptive negative 08/26/21 Unknown Urine Methadone Screen Presumptive negative 08/26/21 Unknown Ur Barbiturates Screen Presumptive negative 08/26/21 Unknown Ur Phencyclidine Scrn Presumptive negative 08/26/21 Unknown Ur Amphetamines Screen Presumptive negative 08/26/21 Unknown U Benzodiazepines Scrn Presumptive negative 08/26/21 Unknown Urine Cocaine Screen Presumptive negative 08/26/21 Unknown U Marijuana (THC) Screen Presumptive positive 08/26/21 Unknown Drugs of Abuse Note Disclamer 08/26/21 Unknown Camacho/IV: Voiding Method Condom Catheter Active Medications - Current Medications Current Medications: Generic Name Dose Route Start Last Admin Trade Name Freq PRN Reason Stop Dose Admin Acetaminophen 650 mg 08/27/21 05:07 Acetaminophen 325 Mg Tab PO Q4H PRN Pain MILD(1-3)/Fever >100.5/ESTES Albuterol 2.5 mg 08/27/21 05:07 Albuterol 2.5 Mg/3 Ml Nebu IH Q3HRT PRN Shortness Of Breath Aspirin 325 mg 08/27/21 10:00 08/31/21 09:59 Aspirin 325 Mg Tab PO 325 mg QDAY TRACEY Administration Atorvastatin Calcium 40 mg 08/27/21 22:00 08/30/21 21:30 Atorvastatin 40 Mg Tab PO 40 mg QHS TRACEY Administration Carvedilol 6.25 mg 08/31/21 16:00 Carvedilol 6.25 Mg Tab PO BID [facility] Clopidogrel Bisulfate 75 mg 08/31/21 16:00 Clopidogrel 75 Mg Tab PO QDAY [facility] Famotidine 20 mg 08/27/21 10:00 08/31/21 10:00 Famotidine 20 Mg Tab PO 20 mg BID [facility] Administration Hydralazine HCl 10 mg 08/27/21 05:07 08/31/21 13:40 Hydralazine 20 Mg/1 Ml Inj IV 10 mg Q6H PRN Administration Blood Pressure Hydromorphone HCl 0.5 mg 08/27/21 05:07 Hydromorphone 1 Mg/1 Ml Inj IV Q3H PRN Pain , Severe (7-10) Morphine Sulfate 2 mg 08/27/21 05:07 Morphine 2 Mg/1 Ml Inj IV Q4H PRN Pain, Moderate (4-6) Nifedipine 90 mg 09/01/21 10:00 Nifedipine Xl 60 Mg Tab PO DAILY [facility] Ondansetron HCl 4 mg 08/27/21 05:07 Ondansetron 4 Mg/2 Ml Inj IV Q8H PRN Nausea And Vomiting Sodium Chloride 10 ml 08/27/21 10:00 08/31/21 10:00 Sodium Chloride 0.9% 10 Ml Flush Syringe IV 10 ml BID [facility] Administration Sodium Chloride 10 ml 08/27/21 05:07 Sodium Chloride 0.9% 10 Ml Flush Syringe IV PRN PRN LINE FLUSH
[2021-08-31] MEDS: carvediloL 6.25 MG TAB PO SCH ×2 (16:38→21:27)
[2021-08-31] MEDS: CLOPIDOGREL 75 MG TAB PO SCH (16:38)
[2021-08-31] MEDS: hydrALAZINE 25 MG TAB PO SCH (21:28)
[2021-09-01] MEDS: hydrALAZINE 25 MG TAB PO SCH (05:26)
--- NOTE | 2021-09-01 08:15 | Discharge Summary ---
Providers - Providers Date of Admission: 08/27/21 05:08 Date of discharge: 09/01/21 Attending physician: DIANNE LINCOLN MD 08/27/21 05:07 Consult to Physician [CONS] Routine Comment: Consulting Provider: GEENA ADAM Physician Instructions: Reason For Exam: cva 08/27/21 05:08 Occupational Therapy Evaluate and Treat [CONS] Routine Comment: Reason For Exam: Neuro deficits Physical Therapy Evaluation and Treat [CONS] Routine Comment: Reason For Exam: Neuro deficits 08/27/21 08:13 Speech Therapy Evaluation and Treat [CONS] Stat Reason For Exam: swallow eval 08/30/21 09:23 Consult to Physician [CONS] Routine Comment: Consulting Provider: ALEXA GAY Physician Instructions: Reason For Exam: CVA Primary care physician: [employer] Hospitalization Reason for admission: Acute CVA Condition: Fair Pertinent studies: Reviewed. Procedures: None. Hospital course: Patient is a 46-year-old male past medical history of uncontrolled hypertension, obesity, noncompliance with medical recommendations who presented with right- sided weakness and his upper and lower extremity that was found to be secondary to an acute CVA. CT head noncontrast was unremarkable. The patient presented outside of the window, and was not a candidate for TPA. CT angio head and neck were unremarkable. MRI brain revealed patchy areas of ischemia in the watershed region between the left ERICK and MCA territory (in the posterior frontal lobe). There was minimal involvement of the paracentral lobule region of the left, as well as the cingulate gyral region anteriorly on the left, most likely supplying the ERICK territory. The patient also underwent TTE revealing an EF of 50-55% with mild diastolic dysfunction but normal LV size and function. No PFO was visualized. Patient was evaluated by physical therapy that recommended acute rehab. The patient has been accepted to [facility]. The patient's blood pressure remained elevated and adjustments were made in his medication to better control it. The patient is medically clear for discharge. Disposition: [facility] Final Discharge Diagnosis (Prints w/discharge instructions): Acute CVA, uncontrolled hypertension, medical noncompliance, polysubstance dependence, obesity. Time spent for discharge: 45 min Core Measure Documentation - Palliative Care Palliative Care/ Comfort Measures: Not Applicable - Core Measures Any of the following diagnoses?: none - Stroke Discharge Requirements Statin for LDL = or >70 mg/dl on DC: Yes Anticoag for atrial fib/atrial flutter: Not Applicable Antithrombotic for ischemic stroke: Yes Exam - Constitutional Vitals: Temp Pulse Resp BP Pulse Ox 98.8 F 72 18 129/84 97 09/01/21 03:25 09/01/21 05:26 09/01/21 03:25 09/01/21 05:26 09/01/21 03:25 General appearance: Present: no acute distress, well-nourished, obese - EENT Eyes: Present: PERRL, EOM intact ENT: hearing intact, clear oral mucosa, dentition normal - Neck Neck: Present: supple, normal ROM - Respiratory Respiratory effort: normal Respiratory: bilateral: CTA - Cardiovascular Rhythm: regular Heart Sounds: Present: S1 & S2 - Extremities Extremities: no ischemia, pulses intact, pulses symmetrical, No edema, normal temperature, normal color Peripheral Pulses: within normal limits - Abdominal General gastrointestinal: Present: soft, non-tender, non-distended, normal bowel sounds Male genitourinary: Present: deferred - Rectal Rectal Exam: deferred - Integumentary Integumentary: Present: clear, warm, dry - Musculoskeletal Musculoskeletal: right sided weakness - Psychiatric Psychiatric: appropriate mood/affect, cooperative - Neurologic Neurologic: CNII-XII intact - Allied Health Allied health notes reviewed: nursing Plan Activity: advance as tolerated Diet: low salt Special Instructions: record daily BP diary Additional Instructions: Patient is a 46-year-old male past medical history of uncontrolled hypertension, obesity, noncompliance with medical recommendations who presented with right-sided weakness and his upper and lower extremity that was found to be secondary to an acute CVA. CT head noncontrast was unremarkable. The patient presented outside of the window, and was not a candidate for TPA. CT angio head and neck were unremarkable. MRI brain revealed patchy areas of ischemia in the watershed region between the left ERICK and MCA territory (in the posterior frontal lobe). There was minimal involvement of the paracentral lobule region of the left, as well as the cingulate gyral region anteriorly on the left, most likely supplying the ERICK territory. The patient also underwent TTE revealing an EF of 50-55% with mild diastolic dysfunction but normal LV size and function. No PFO was visualized. Patient was evaluated by physical therapy that recommended acute rehab. The patient has been accepted to [facility]. The patient's blood pressure remained elevated and adjustments were made in his medication to better control it. The patient will follow up with neurology in outpatient setting in approximately 1 week. The patient is medically clear for discharge. Care Plan Goals: Patient is medically clear for discharge to [facility]. Assessment: Patient is a 46-year-old male past medical history of uncontrolled hypertension, obesity, noncompliance with medical recommendations who presented with right- sided weakness and his upper and lower extremity that was found to be secondary to an acute CVA. CT head noncontrast was unremarkable. The patient presented outside of the window, and was not a candidate for TPA. CT angio head and neck were unremarkable. MRI brain revealed patchy areas of ischemia in the watershed region between the left ERICK and MCA territory (in the posterior frontal lobe). There was minimal involvement of the paracentral lobule region of the left, as well as the cingulate gyral region anteriorly on the left, most likely supplying the ERICK territory. The patient also underwent TTE revealing an EF of 50-55% with mild diastolic dysfunction but normal LV size and function. No PFO was visualized. Patient was evaluated by physical therapy that recommended acute rehab. The patient has been accepted to [facility]. The patient's blood pressure remained elevated and adjustments were made in his medication to better control it. The patient is medically clear for discharge. Follow up with: PRIMARY CAREMD [Primary Care Provider] - 3-5 Days ALEXA GAY MD [Staff Physician] - 7 Days Forms: Work/School Release Form Prescriptions: AtorvaSTATin [Lipitor] 40 mg PO QHS #30 tablet Aspirin 325 mg PO QDAY #30 tablet carvediloL [Coreg] 6.25 mg PO BID #60 tablet Clopidogrel [Plavix] 75 mg PO QDAY #30 tablet NIFEdipine XL [Procardia Xl] 90 mg PO DAILY #30 tablet
[2021-09-01] MEDS ORDERED: NIFEdipine XL 60 MG TAB PO SCH (10:00)
[2021-09-01] MEDS: FAMOTIDINE 20 MG TAB PO SCH (10:29)
[2021-09-01] MEDS: carvediloL 6.25 MG TAB PO SCH (10:29)
[2021-09-01] MEDS: ASPIRIN 325 MG TAB PO SCH (10:30)
[2021-09-01] MEDS: CLOPIDOGREL 75 MG TAB PO SCH (10:30)
--- NOTE | 2021-09-01 10:48 | Vascular Lab Report ---
RENAL ARTERIAL DOPPLER ULTRASOUND HISTORY: HTN; ASSESS FOR POSSIBLE RENAL ARTERY STENOSIS COMPARISON: None. TECHNIQUE: Routine renal arterial doppler ultrasound performed using grayscale, color and pulsed dopp ler. FINDINGS: Abdominal Aorta: No significant abnormality. Suprarenal velocity is 108.2 cm/s. Right kidney: No significant abnormality. No hydronephrosis. Kidney measures 9.8 cm. Resistive index: Less than 0.7 Right renal artery: Peak systolic velocity of 112.9 cm/s with [id number]-[id number] ratio of less than 3.5 Right renal vein: Patent. Left kidney: No significant abnormality. No hydronephrosis. Kidney measures 9.5 cm. Resistive index: Less than 0.7 Left renal artery: Peak systolic velocity of 110.0 cm/s with dqmbc-ev-dgzryb ratio of less than 3.5 Left renal vein: Patent. Additional findings: None. IMPRESSION: 1. No sonographic evidence of hemodynamically significant renal artery stenosis. 2. No other significant abnormality. Signer Name: Garo Peguero MD Signed: 09/01/2021 10:44 AM Workstation Name: [employer]
[2021-09-01 17:27] VITALS: BP 169/119
== END 2021-09-01 18:02 | disposition home health service (06) | DRG 65 ==
LOC: ED 14:14 → 4A 08-27 05:08
PROVIDERS: ADMIT Hospitalist; ATTEND Student in an Organized Health Care Education/Training Program
DX: I63.9 Cerebral infarction, unspecified (principal); G81.91 Hemiplegia, unspecified affecting right dominant side; I10 Essential (primary) hypertension; E66.9 Obesity, unspecified; Z68.31 Body mass index [BMI] 31.0-31.9, adult; Z91.19 Patient's noncompliance with other medical treatment and regimen; F12.90 Cannabis use, unspecified, uncomplicated; Z71.3 Dietary counseling and surveillance
CPT/HCPCS: 36415; 70450; 70496; 70498; 70544; 70551; 80048; 80307; 85025; 85610; 85670; 85730; 93005; 93306; 93975; 94640; 97129; 97130; 99406; G0378; J3490; J7070; C8929; J0360; J2405; Q9967